=== PATIENT | female | born 1935 | race Caucasian/White ===

== ENCOUNTER 2023-01-19 09:35 | Observation (INO) | payer MEDICARE ==
[~2023-01-19] VITALS: Ht 157.5 cm; Wt 69.0 kg
[2023-01-19 10:28] LABS: Albumin, Blood 3.6 g/dL (3.4-5.0); Albumin/Globulin Ratio 0.9 (0.8-1.8); Bilirubin, Total 1.2 mg/dL (0.1-1.0); Bun/Creatinine Ratio 11.4 (12.0-20.0); Creatinine, Blood 1.14 mg/dL (0.40-1.00); Globulin, Blood 3.8 g/dL (2.2-4.0); Potassium, Blood 3.9 mmol/L (3.5-5.5); Total Protein, Blood 7.4 g/dL (6.4-8.2)
[2023-01-19 10:33] LABS: CHOL/HDL RATIO 2.9; Cholesterol 134 mg/dL (50-200); HDL Cholesterol 47 mg/dL (>39); LDL/HDL RATIO 1.3; Low Density Lipoprotein Chol 60 mg/dL (0-110); Triglycerides 134 mg/dL (30-160); Very Low Density Lipoprot Chol 26 mg/dL (6-32)
[2023-01-19 10:53] LABS: BASOPHILS ABSOLUTE AUTO 0.04 K/mm3 (0.00-0.23); BASOPHILS PERCENT AUTO 0 % (0-2); EOSINOPHILS ABSOLUTE AUTO 0.15 K/mm3 (0.00-0.68); EOSINOPHILS PERCENT AUTO 1 % (0-6); Hematocrit 41.3 % (33.0-51.0); Hemoglobin 13.4 g/dL (11.5-16.0); IMMATURE GRAN ABSOLUTE AUTO 0.05 K/mm3 (0.00-0.10); IMMATURE GRAN PERCENT AUTO 0 % (0-1); LYMPHOCYTES ABSOLUTE AUTO 4.25 K/mm3 (0.84-5.20); LYMPHOCYTES PERCENT AUTO 37 % (21-46); MONOCYTES ABSOLUTE AUTO 0.83 K/mm3 (0.16-1.47); MONOCYTES PERCENT AUTO 7 % (4-13); Mean Corpuscular HGB 29.1 pg (26.0-34.0); Mean Corpuscular HGB Conc 32.4 g/dL (31.5-36.5); Mean Corpuscular Volume 90 fL (80-100); Mean Platelet Volume 11.6 fL (9.1-12.4); NEUTROPHILS ABSOLUTE AUTO 6.12 K/mm3 (1.96-9.15); NEUTROPHILS PERCENT AUTO 54 % (41-73); Platelet Count 245 K/mm3 (150-400); RDW Coefficient Variation 13.2 % (11.7-14.2); RDW Standard Deviation 43.3 fL (35.1-46.3); Red Blood Cell Count 4.61 M/mm3 (3.80-5.20); White Blood Cell Count 11.44 K/mm3 (4.00-11.30)
[2023-01-19] MEDS ORDERED: ATORVASTATIN CA20 MG PO (14:05)
[2023-01-19] MEDS ORDERED: OMEP20ER PO (14:05)
[2023-01-19 15:30] VITALS: BP 155/87
--- NOTE | 2023-01-19 18:30 | NUR ---
PT ARRIVED TO [facility] 1510 THIS AFTERNOON FROM ER. PT IS A&OX4 AND ABLE TO STAND AND TRANSFER FROM [facility] TO BED. SEE DOCUMENTED VS AND ADMISSION ASSESSMENT. PT STATES TO THIS RN THAT SHE WISHES TO BE DNR. THIS RN SPOKE TO DR AGOSTO AND NEW ORDERS WERE PLACE FOR PT TO BE DNR. PT HAS BEEN MOSTLY RESTING IN BED, UP TO RESTROOM ONCE WITH ONE PERSON SBA. REMAINS IN AFIB W/O ANY ACUTE EVENTS ON TELE. PT'S FAMILY AT BEDSIDE AND UPDATED ON PT CONDITION. PT ORIENTED TO CALL LIGHT AND UNIT ROUTINES. PT IS ABLE TO USE CALL LIGHT FOR NEEDS. WILL CONTINUE TO MONITOR AND GIVE REPORT TO NOC SHIFT RN.
[2023-01-19 21:06] VITALS: BP 180/90
[2023-01-19 22:04] VITALS: BP 163/78
[2023-01-20 00:46] VITALS: BP 138/68
[2023-01-20 03:47] VITALS: BP 157/79
[2023-01-20 04:30] LABS: BASOPHILS ABSOLUTE AUTO 0.05 K/mm3 (0.00-0.23); BASOPHILS PERCENT AUTO 0 % (0-2); EOSINOPHILS ABSOLUTE AUTO 0.13 K/mm3 (0.00-0.68); EOSINOPHILS PERCENT AUTO 1 % (0-6); Hemoglobin 12.6 g/dL (11.5-16.0); Mean Corpuscular HGB 29.3 pg (26.0-34.0); Mean Corpuscular HGB Conc 33.2 g/dL (31.5-36.5); Mean Corpuscular Volume 88 fL (80-100); Mean Platelet Volume 11.6 fL (9.1-12.4); Platelet Count 244 K/mm3 (150-400); RDW Coefficient Variation 13.2 % (11.7-14.2); White Blood Cell Count 12.33 K/mm3 (4.00-11.30)
[2023-01-20 04:43] LABS: IMMATURE GRAN ABSOLUTE AUTO 0.03 K/mm3 (0.00-0.10); IMMATURE GRAN PERCENT AUTO 0 % (0-1); LYMPHOCYTES ABSOLUTE AUTO 5.32 K/mm3 (0.84-5.20); LYMPHOCYTES PERCENT AUTO 43 % (21-46); MONOCYTES ABSOLUTE AUTO 0.98 K/mm3 (0.16-1.47); MONOCYTES PERCENT AUTO 8 % (4-13); NEUTROPHILS ABSOLUTE AUTO 5.82 K/mm3 (1.96-9.15); NEUTROPHILS PERCENT AUTO 47 % (41-73)
--- NOTE | 2023-01-20 05:47 | NUR ---
SHIFT SUMMARY A/Ox4 AND COOPERATIVE WITH STAFF. ANSWERS QUESTIONS APPROPRIATELY AND ABLE TO MAKE HER NEEDS KNOWN. NO ACUTE EVENTS OVERNIGHT. NO REPORTS OF ANY NEW SENSATION LOSS, UNILATERAL WEAKNESS, OR VISION CHANGES. CARDIAC, REMAINS IN AFIB RHYTHM RANGING 70-90's WITH NO COMPLAINTS OF CP OR PRESSURE T/O THE NIGHT. SBP HAS BEEN ELEVATED RANGING 130-150's. RESPIRATORY, MAINTAINS SPO2 >95% ON RA WITH NO REPORTS OF SOB OR DYSPNEA. GI/, ABLE TO AMBULATE TO THE BATHROOM VIA STAND BY ASSIST FROM STAFF TO ENSURE PT SAFETY. ASSESSED PT FOR RISKS OF ANY IGNITION SOURCES WELL BEHAVIORS FOR INCREASED RISKS OF FIRE DANGER. PT EDUCATED ON COMMON SOURCES OF IGNITION WELL NEED TO KEEP A SAFE ENVIRONMENT. PT VOICED UNDERSTANDING. NO NEW ORDERS AT THIS TIME, WILL REPORT TO ONCOMING RN. JUANCARLOS ZUNIGA OF THIS NOTE
[2023-01-20 06:04] LABS: Albumin, Blood 3.4 g/dL (3.4-5.0); Bilirubin, Total 1.3 mg/dL (0.1-1.0); Bun/Creatinine Ratio 13.4 (12.0-20.0); Creatinine, Blood 1.19 mg/dL (0.40-1.00); Free Thyroxine 1.07 ng/dL (0.70-1.60); Globulin, Blood 3.4 g/dL (2.2-4.0); Potassium, Blood 3.7 mmol/L (3.5-5.5); Total Protein, Blood 6.8 g/dL (6.4-8.2); Triiodothyronine, Free 2.35 pg/mL (2.18-3.98)
[2023-01-20 07:39] VITALS: BP 173/97
[2023-01-20] MEDS ORDERED: ELIQUIS5 M2 PO (14:16)
[2023-01-20] MEDS ORDERED: METO25ER PO (14:17)
[2023-01-20] MEDS ORDERED: MIDO5 PO (14:19)
--- NOTE | 2023-01-20 15:32 | NUR ---
DISCHARGE NOTE ASSUMED CARE OF PT AT 0700 THIS AM. NO ACUTE CHANGES REPORTED OVERNIGHT. SEE DOCUMENTED VS AND ASSESSMENT. DR ESPINO IN ROOM TO SEE PT, PLAN DISCUSSED WITH THIS RN. MEDICATIONS ADJUSTED PER DR ESPINO. RESULTS OF OTHROSTATIC VS THIS AFTERNOON SENT TO DR ESPINO FOR REVIEW. DISCHARGE ORDERS PLACED. IV AND TELE REMOVED 1520. PT ABLE TO GET DRESSED WITH MINIMAL ASSISTANCE. GAIT STEADY, PT DENIES DIZZINESS WHEN UP. DISCHARGE TEACHING REVIEWED WITH PT AND HER DTR AT BEDSIDE INCLUDING FOLLOW UP APPOINTMENTS, MEDICATION LIST AND EDUCATION. THEY BOTH STATED THEY HAD NO FURTHER QUESTIONS. PT DISCHARGED TO HER DTRs CARE. ALL BELONGINGS SENT WITH PT. NO FURTHER DISCHARGE NEEDS IDENTIFIED.
== END 2023-01-20 15:30 | disposition home or self-care (01) ==
LOC: ER 09:35 → PCU 09:36 → ERHOLD 09:36 → PCU 15:09
PROVIDERS: Family Medicine; ADMIT Hospitalist
DX: I48.91 Unspecified atrial fibrillation (principal); I95.1 Orthostatic hypotension; I48.92 Unspecified atrial flutter; I44.30 Unspecified atrioventricular block; S00.83XA Contusion of other part of head, initial encounter; W19.XXXA Unspecified fall, initial encounter; R94.6 Abnormal results of thyroid function studies; Z66 Do not resuscitate; I25.10 Atherosclerotic heart disease of native coronary artery without angina pectoris; Z95.5 Presence of coronary angioplasty implant and graft; I69.911 Memory deficit following unspecified cerebrovascular disease; Z88.1 Allergy status to other antibiotic agents; Z88.8 Allergy status to other drugs, medicaments and biological substances
CPT/HCPCS: 36415; 70450; 80053; 80061; 83880; 84439; 84443; 84481; 84484; 85025; 93005; 93010; 93306; 96360; 96361; 96372; 97116; 97161; 99285-25; A9270; G0378; J1650; J7030

== ENCOUNTER 2024-05-12 12:57 | Emergency (ER) | payer MEDICARE ==
[~2024-05-12] VITALS: Ht 157.5 cm; Wt 72.1 kg
[~2024-05-12 12:57] MED LIST: ATORVASTATIN CA20 MG PO; ELIQUIS5 M2 PO; METO25ER PO; MIDO5 PO; OMEP20ER PO
[2024-05-12 13:35] VITALS: BP 165/97
[2024-05-12 14:25] LABS: BASOPHILS ABSOLUTE AUTO 0.06 K/mm3 (0.00-0.23); BASOPHILS PERCENT AUTO 1 % (0-2); EOSINOPHILS ABSOLUTE AUTO 0.07 K/mm3 (0.00-0.68); EOSINOPHILS PERCENT AUTO 1 % (0-6); Hematocrit 44.4 % (33.0-51.0); Hemoglobin 14.8 g/dL (11.5-16.0); IMMATURE GRAN ABSOLUTE AUTO 0.03 K/mm3 (0.00-0.10); IMMATURE GRAN PERCENT AUTO 0 % (0-1); LYMPHOCYTES ABSOLUTE AUTO 3.69 K/mm3 (0.84-5.20); LYMPHOCYTES PERCENT AUTO 32 % (21-46); MONOCYTES ABSOLUTE AUTO 0.78 K/mm3 (0.16-1.47); MONOCYTES PERCENT AUTO 7 % (4-13); Mean Corpuscular HGB 29.7 pg (26.0-34.0); Mean Corpuscular HGB Conc 33.3 g/dL (31.5-36.5); Mean Corpuscular Volume 89 fL (80-100); Mean Platelet Volume 11.3 fL (9.1-12.4); NEUTROPHILS ABSOLUTE AUTO 7.05 K/mm3 (1.96-9.15); NEUTROPHILS PERCENT AUTO 60 % (41-73); Platelet Count 249 K/mm3 (150-400); RDW Coefficient Variation 13.4 % (11.7-14.2); RDW Standard Deviation 43.6 fL (35.1-46.3); Red Blood Cell Count 4.99 M/mm3 (3.80-5.20); White Blood Cell Count 11.68 K/mm3 (4.00-11.30)
[2024-05-12 14:50] LABS: Albumin, Blood 3.7 g/dL (3.4-5.0); Albumin/Globulin Ratio 0.9 (0.8-1.8); Bilirubin, Total 0.9 mg/dL (0.1-1.0); Bun/Creatinine Ratio 20.5 (12.0-20.0); Calcium, Blood 9.4 mg/dL (8.5-10.1); Creatinine, Blood 0.98 mg/dL (0.40-1.00); Potassium, Blood 3.9 mmol/L (3.5-5.5); Total Protein, Blood 7.7 g/dL (6.4-8.2)
== END 2024-05-12 15:46 | disposition left against medical advice (07) ==
LOC: ER 12:57
PROVIDERS: Student in an Organized Health Care Education/Training Program
DX: R41.0 Disorientation, unspecified (principal); R40.0 Somnolence; R53.1 Weakness; Z53.21 Procedure and treatment not carried out due to patient leaving prior to being seen by health care provider
CPT/HCPCS: 80053; 85025; 93005; 93010

== ENCOUNTER 2025-02-20 10:22 | Emergency (ER) | payer MEDICARE ==
[~2025-02-20] VITALS: Ht 157.5 cm; Wt 66.7 kg
[2025-02-20 12:13] VITALS: BP 153/89
== END 2025-02-20 12:40 ==
LOC: ER 10:22
DX: S01.01XA Laceration without foreign body of scalp, initial encounter (principal); W18.30XA Fall on same level, unspecified, initial encounter
CPT/HCPCS: 12001; 70450; 72125; 90471; 90715; 99283-25